=== PATIENT | female | born 1960 | race Caucasian/White ===

== ENCOUNTER 2019-05-23 11:03 | Day surgery (SDC) | payer BC ==
[2019-05-23 12:20] VITALS: BMI 28.0
[2019-05-23 15:12] VITALS: TEMP 97.8
[2019-05-23 15:49] VITALS: PULSE 65
[2019-05-23 15:50] VITALS: BP 126/80
--- NOTE | 2019-05-25 16:16 | PATH ---
Surgical Pathology Report Patient Name: [facility]. Rec. #: [id number] /Age/Gender: 1960 (Age: 58) / F Account: [id number] Location: [facility]-ENDOSCOPY Taken: 05/23/2019 Received: 05/24/2019 Reported: 05/25/2019 Physicians: Kathie Mays M.D. Specimen(s) Received A: STOMACH B: DUODENUM C: CECUM POLYP D: ASCENDING COLON POLYP Clinical History Screening, dyspepsia Postoperative diagnosis: Normal EGD, colon polyps Final Diagnosis A. STOMACH, BIOPSY: GASTRIC MUCOSA WITH CHRONIC GASTRITIS. IMMUNOSTAIN FOR H. PYLORI IS NEGATIVE. NEGATIVE FOR INTESTINAL METAPLASIA. B. DUODENUM, BIOPSY: DUODENAL MUCOSA WITH NO SIGNIFICANT PATHOLOGIC CHANGE. NO HISTOLOGIC EVIDENCE OF INTRAEPITHELIAL LYMPHOCYTOSIS. C. CECAL POLYP, POLYPECTOMY: TUBULAR ADENOMA. D. ASCENDING COLON POLYP, POLYPECTOMY: TUBULAR ADENOMA. Electronically Signed Sid Calderon M.D. Gross Description A. Received in formalin, labeled "biopsy stomach" are 2 curran, irregular portions of soft tissue measuring 0.3 and 0.4 cm. in greatest dimension. The specimens are submitted in toto in one cassette. B. Received in formalin, labeled "biopsy duodenum" are 4 curran, irregular portions of soft tissue ranging from 0.2-0.4 cm. in greatest dimension. The specimens are submitted in toto in one cassette. C. Received in formalin, labeled "polyp cecum" is a curran, irregular portion of soft tissue measuring 0.5 cm. in greatest dimension. The specimen is submitted in toto in one cassette. D. Received in formalin, labeled "polyp ascending colon" is a curran, irregular portion of soft tissue measuring 0.4 cm. in greatest dimension. The specimen is submitted in toto in one cassette. DL/05/24/2019 saudi/05/24/2019
== END 2019-05-23 15:51 | disposition home or self-care (01) ==
LOC: JASU-ENDO 11:03
PROVIDERS: ATTEND Internal Medicine Gastroenterology
PROC: 0DBH8ZX Excision of Cecum, Via Natural or Artificial Opening Endoscopic, Diagnostic (ICD-10-PCS; 2019-05-23)
PROC: 0DB98ZX Excision of Duodenum, Via Natural or Artificial Opening Endoscopic, Diagnostic (ICD-10-PCS; 2019-05-23)
PROC: 0DB68ZX Excision of Stomach, Via Natural or Artificial Opening Endoscopic, Diagnostic (ICD-10-PCS; 2019-05-23)
PROC: 0DBK8ZX Excision of Ascending Colon, Via Natural or Artificial Opening Endoscopic, Diagnostic (ICD-10-PCS; principal; 2019-05-23 12:15)
DX: Z12.11 Encounter for screening for malignant neoplasm of colon (principal); D12.2 Benign neoplasm of ascending colon; D12.0 Benign neoplasm of cecum; R10.13 Epigastric pain
CPT/HCPCS: 88305-TC; 88342-TC